=== PATIENT | female | born 1995 | race Caucasian/White ===

== ENCOUNTER 2022-10-08 19:22 | Inpatient (IN) ==
[2022-10-08] MEDS ORDERED: OXYTOCIN 30 UNITS/500 ML BAG IV PRN ×2 (19:34→20:07)
[2022-10-08] MEDS ORDERED: LIDOCAINE 1% LOCAL 20 ML VIAL INFIL PRN (19:34)
[2022-10-08 20:11] LABS: Hematocrit (blood only) 35.6 % (37.0-47.0); Hemoglobin 12.4 g/dl (12.0-16.0); Mean Corpuscular Hemoglobin 31.3 pg (25.0-34.0); Mean Corpuscular Hgb Conc 34.8 g/dL (32.0-36.0); Mean Corpuscular Volume 89.9 fL (80.0-100.0); Mean Platelet Volume 10.9 fL (9.4-12.4); Platelet Count 159 K/uL (130-400); RDW Coefficient of Variation 13.1 % (11.5-14.5); RDW Standard Deviation 42.9 fL (36.4-46.3); Red Blood Count 3.96 M/uL (4.20-5.40); White Blood Count 11.67 K/ul (4.8-10.8)
--- NOTE | 2022-10-08 20:13 | History & Physical Report ---
Date of Service October 08, 2022 Assessment & Plan (1) Tobacco smoking affecting : (2) Term , repeat: Admission and Anticipated Discharge Date Admission Date: October 08, 2022 History of Present Illness Chief Complaint: SROM Primary Care Provider: RADHA PCP 27 F P1001 at 39.4 weeks presents to L&D at [facility] with SROM clear fluid at 1800. Allergies Allergy/AdvReac Type Severity Reaction Status Date / Time No Known Allergies Allergy Verified 08/08/22 18:58 Home Medications Medication Instructions Recorded Confirmed Type buprenorphine HCl 8 mg sublingual 20 mg sublingual DAILY 08/08/22 10/08/22 History tablet ubhynvpz-jha-Oh-FA 1 mg 1 tab PO DAILY 10/08/22 10/08/22 History tablet Patient History Social History Smoking Status: Current every day smoker Second Hand Exposure: No; Do You Dip or Chew Tobacco: No; Tobacco Cessation Education Requested by Patient: No Hx Alcohol Use: Yes Hx Substance Use: Yes (fentyal clean since 10/2021) Substance Use Type Other:: Subutex 24mg daily Preferred Language: Belgian Communication Ability: Effective 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 Beliefs That Will Affect Care: None marital status: Single Current Living Situation: Family and Significant Other Current Living Situation Comment: fob and son Other Information That Helps Us Care for You: No Feels Safe at Home: Yes Safety Concerns: Feels Safe At This Time Assistive Devices: None 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 Review of Systems All systems reviewed & are unremarkable except as noted in HPI & below Physical Exam Constitutional: WD/WN, vitals as above Eyes: PERRL, conjunctivae normal, anicteric sclerae Respiratory: normal respiratory effort, lungs clear to auscultation Gastrointestinal (Abdomen): Inspection/Auscultation: abdomen normal to inspection Musculoskeletal: Extremities: extremities normal to inspection Skin: no rashes, warm and dry Neurologic: patellar DTR's 2+ bilat, sensation intact Psychiatric: A+Ox3, euthymic affect Genitourinary: Manual OB Exam: + cervical dilation 2 cm, + cervical effacement 50%, + station -2 and + amniotic fluid clear OB Exam Monitor Tracing: + exte rnal FHT monitor used, + external uterine monitor used, + category I and + normal FHT variability GBS is negative EFW 7 lbs Results & Data Vital Signs (Past 12 Hours) Vital Signs Pulse Resp BP 10/08/22 19:32 89 115/68 10/08/22 19:33 18 Laboratory Results Laboratory Results - last 72 hr 10/08/22 19:53 WBC 11.67 H RBC 3.96 L Hgb 12.4 Hct 35.6 L MCV 89.9 MCH 31.3 MCHC 34.8 RDW Std Deviation 42.9 RDW Coeff of Yanira 13.1 Plt Count 159 MPV 10.9 Code Status & VTE Plan VTE Prophylaxis Plan VTE Prophylaxis will be ordered: No Monitoring External Monitor Cat 1
[2022-10-08] MEDS: LACTATED RINGER'S 1,000 ML IV PRN (20:50)
[2022-10-08] MEDS: NICOTINE 21 MG/24 HR TDSY TD SCH (20:54)
[2022-10-08] MEDS ORDERED: NICOTINE 7 MG/24 HR TDSY TD SCH (21:00)
[2022-10-08] MEDS: buprenorphine HCL 2 MG SUBL SL SCH (21:01)
[2022-10-08 21:50] LABS: Amphetamines+Metham, Urine Neg (Neg); Barbiturates, Urine Neg (Neg); Benzodiazepine, Urine Neg (Neg); Cocaine, Urine Neg (Neg); MDMA (Ecstacy), Urine Neg (Neg); Methadone, Urine Neg (Neg); Opiate, Urine Neg (Neg); Phencyclidine, Urine Neg (Neg)
[2022-10-09] MEDS: LACTATED RINGER'S 1,000 ML IV PRN ×2 (04:42→09:22)
[2022-10-09] MEDS: buprenorphine HCL 8 MG SUBL SL SCH ×2 (07:03→12:55)
[2022-10-09] MEDS ORDERED: fentaNYL citrate PF 100 MCG/2 ML VIAL ONE (08:56)
[2022-10-09] MEDS ORDERED: SODIUM CHLORIDE 0.9% PF INJ 10 ML VIAL ONE (08:56)
[2022-10-09] MEDS ORDERED: BUPIVACAINE 0.25% PF 30 ML VIAL ONE (08:56)
[2022-10-09] MEDS ORDERED: fentaNYL 2MCG/ML ROPIVACAINE 1.25MG/ML 100 ML BAG EPI ONE (08:57)
[2022-10-09] MEDS ORDERED: LIDOCAINE 2%/EPINEPHRINE 1:200,000 20 ML PF ONE ×2 (08:57→14:12)
[2022-10-09] MEDS ORDERED: ePHEDrine sulfate 50 MG/ML AMP IV PRN (09:10)
[2022-10-09] MEDS ORDERED: diphenhydrAMINE 50 MG/ML VIAL IV PRN (09:10)
[2022-10-09] MEDS ORDERED: fentaNYL 2MCG/ML ROPIVACAINE 1.25MG/ML 100 ML BAG EPI PRN (09:10)
[2022-10-09] MEDS ORDERED: NALOXONE HCL 1 MG in SODIUM CHLORIDE 0.9% 1000ML 1,000 ML IV PRN (09:10)
[2022-10-09] MEDS ORDERED: NALBUPHINE HCL INJ 10 MG/ML AMP IV PRN (09:10)
[2022-10-09] MEDS ORDERED: NALOXONE HCL 0.4 MG/1 ML VIAL/CARP IV PRN (09:10)
[2022-10-09] MEDS ORDERED: ONDANSETRON INJ 2 MG/ML 2 ML VIAL IV PRN (09:10)
[2022-10-09] MEDS ORDERED: ePHEDrine sulfate 50 MG/ML AMP ONE (09:13)
--- NOTE | 2022-10-09 09:14 | Anesthesiology Consultation ---
Date of Service October 09, 2022 Assessment & Plan (1) Encounter for pre-operative examination: Chart Review Chart Review: Patient NOT seen in Pre Admission Testing and Acceptable Risk for Labor Epidural Consults Requested none History Height/Weight Height: 5 ft 6 in Weight: 78.018 kg Allergies Allergy/AdvReac Type Severity Reaction Status Date / Time No Known Allergies Allergy Verified 08/08/22 18:58 Medications Home Medications Medication Instructions Recorded Confirmed Last Taken buprenorphine HCl 8 mg sublingual 20 mg sublingual DAILY 08/08/22 10/08/22 10/08/22 tablet 1300 otdhxtof-hnr-At-FA 1 mg 1 tab PO DAILY 10/08/22 10/08/22 10/08/22 08:00 tablet Active Medications Generic Name Dose Route Start Last Admin Trade Name Freq PRN Reason Stop Dose Admin Buprenorphine HCl 8 mg 10/09/22 06:30 10/09/22 07:03 Buprenorphine Hcl 8 Mg Subl SL 11/08/22 06:29 8 mg DAILYBB KORINA Administration Buprenorphine HCl 4 mg 10/08/22 20:50 10/08/22 21:01 Buprenorphine Hcl 2 Mg Subl SL 11/07/22 20:49 4 mg HS KORINA Administration Lactated Ringer's 1,000 mls @ 125 mls/hr 10/08/22 19:34 10/09/22 09:23 Lr IV 10/10/22 19:33 125 mls/hr .Q8H PRN Infusion L&D Protocol Protocol Oxytocin 30 units in 500 mls @ 9 mls/hr 10/08/22 20:07 10/09/22 08:30 Pitocin IV 10/10/22 20:06 0.54 units/hr .Q24H PRN 9 mls/hr Labor Induction/Augmentation Titration Protocol 0.54 UNITS/HR Nicotine 21 mg 10/08/22 21:00 10/08/22 20:54 Nicotine 21 Mg/24 Hr Tdsy TD 11/07/22 20:59 21 mg HS KORINA Administration Past Medical History Medical History (Updated 10/09/22 @ 09:13 by Sekou Connor MD) Encounter for pre-operative examination Tobacco smoking affecting Exercise / Class Metabolic Activity II 4-5 Yardwork/Stairs/Walk up hill Social History Smoking Status: Current every day smoker tobacco type: cigarettes Do You Dip or Chew Tobacco: No Hx Alcohol Use: Yes 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
[2022-10-09] MEDS ORDERED: buprenorphine HCL 8 MG SUBL SL SCH (10:30)
[2022-10-09] MEDS ORDERED: TERBUTALINE SULFATE 1 MG/ML VIAL ONE (10:33)
[2022-10-09] MEDS ORDERED: TERBUTALINE SULFATE 1 MG/ML VIAL SQ ONE (11:46)
--- NOTE | 2022-10-09 13:14 | Obstetrical Progress Note ---
Date of Service October 09, 2022 Assessment & Plan (1) Term , repeat: Plan: Called to evaluate pt with variable and late decel On arrival pit. was off oxygen mask was on an IVF VE ; 5cm/-1 scalp electrode placed Position change improved FHR Pitocin was restarted and cervix is now 8-9/0 station Anticipate VD Admission and Anticipated Discharge Date Admission Date: October 08, 2022 Results & Data Vital Signs (Past 12 Hours) Vital Signs Temp Pulse Resp BP Pulse Ox 10/09/22 13:05 97 H 96 10/09/22 13:04 108 H 152/79 H 10/09/22 13:00 85 99 10/09/22 12:55 106 H 96 10/09/22 12:50 89 98 10/09/22 12:49 90 116/55 L 10/09/22 12:45 82 98 10/09/22 12:40 77 97 10/09/22 12:35 77 97 10/09/22 12:33 111 H 92 10/09/22 12:32 101 H 120/71 10/09/22 12:30 88 97 10/09/22 12:25 91 H 96 10/09/22 12:20 87 96 10/09/22 12:17 80 119/63 10/09/22 12:15 88 95 10/09/22 12:10 93 H 96 10/09/22 12:05 80 96 10/09/22 12:03 18 10/09/22 12:03 36.7 C 18 10/09/22 12:02 103 H 122/77 10/09/22 12:00 97 10/09/22 12:00 89 10/09/22 12:00 95 H 92 10/09/22 11:55 98 H 96 10/09/22 11:50 97 H 97 10/09/22 11:47 96 H 116/76 10/09/22 11:45 104 H 100 10/09/22 11:40 90 99 10/09/22 11:35 83 100 10/09/22 11:32 88 106/56 L 10/09/22 11:30 74 100 10/09/22 11:25 78 99 10/09/22 11:20 106 H 100 10/09/22 11:17 75 106/51 L 10/09/22 11:15 78 100 10/09/22 11:10 84 100 10/09/22 11:05 81 100 10/09/22 11:02 88 106/53 L 10/09/22 11:00 76 100 10/09/22 10:55 88 100 10/09/22 10:50 84 100 10/09/22 10:48 98 H 100/53 L 10/09/22 10:45 90 100 10/09/22 10:40 85 100 10/09/22 10:35 84 100 10/09/22 10:32 74 105/57 L 10/09/22 10:30 83 100 10/09/22 10:25 68 98 10/09/22 10:20 69 99 10/09/22 10:19 74 105/56 L 10/09/22 10:15 88 97 10/09/22 10:13 74 94 10/09/22 10:10 18 10/09/22 10:10 36.6 C 77 18 95 10/09/22 10:08 70 94 10/09/22 10:05 76 94 10/09/22 10:02 85 106/72 10/09/22 10:00 82 96 10/09/22 09:59 77 118/74 10/09/22 09:57 74 120/75 10/09/22 09:55 71 96 10/09/22 09:56 72 126/71 10/09/22 09:54 70 129/66 10/09/22 09:52 76 124/73 10/09/22 09:50 84 96 10/09/22 09:49 75 117/65 10/09/22 09:47 73 116/66 10/09/22 09:45 76 112/64 97 10/09/22 09:44 70 105/56 L 10/09/22 09:42 71 109/56 L 10/09/22 09:40 96 10/09/22 09:40 93 H 10/09/22 09:40 77 105/62 10/09/22 09:37 78 108/55 L 10/09/22 09:35 73 110/56 L 96 10/09/22 09:33 90 117/65 10/09/22 09:30 98 H 98 10/09/22 09:28 73 119/64 10/09/22 09:25 79 96 10/09/22 09:20 75 97 10/09/22 09:17 90 94 10/09/22 09:15 80 97 10/09/22 09:02 71 114/73 10/09/22 08:02 36.6 C 71 18 115/62 10/09/22 07:06 16 10/09/22 07:06 36.7 C 16 10/09/22 07:07 78 101/57 L 10/09/22 05:53 65 104/57 L 10/09/22 04:54 18 10/09/22 04:54 36.5 C 18 10/09/22 04:48 70 109/67 10/09/22 03:40 18 10/09/22 03:40 36.6 C 18 10/09/22 03:49 75 103/67 10/09/22 03:00 18 10/09/22 03:00 18 10/09/22 02:48 68 92/50 L 10/09/22 01:56 18 10/09/22 01:56 36.5 C 18 10/09/22 01:49 64 104/59 L
[2022-10-09] MEDS ORDERED: NURSING L&D Epidural Breakthrough Pain Update ONE (13:59)
--- NOTE | 2022-10-09 14:07 | Obstetrical Progress Note ---
Date of Service October 09, 2022 Assessment & Plan (1) Term , repeat: Plan: Pt fully dilated/0 station Pitocin 3mu tried pushing with cts because she had so much vaginal pressure FHr showed dep variable and sometimes late decel Pitocin is stopped with pushing and oxygen given. Pt is placed on her left side- FHR is improved FH now shows early decel plan' anesthesia pain control Anticipate passive decent Admission and Anticipated Discharge Date Admission Date: October 08, 2022 Results & Data Vital Signs (Past 12 Hours) Vital Signs Temp Pulse Resp BP Pulse Ox 10/09/22 14:00 92 H 100 10/09/22 13:55 78 100 10/09/22 13:50 112 H 100 10/09/22 13:48 81 121/71 10/09/22 13:45 77 100 10/09/22 13:40 110 H 100 10/09/22 13:38 86 94 10/09/22 13:35 91 H 96 10/09/22 13:32 82 126/73 10/09/22 13:30 118 H 100 10/09/22 13:25 86 98 10/09/22 13:20 110 H 95 10/09/22 13:15 86 97 10/09/22 13:10 90 98 10/09/22 13:05 97 H 96 10/09/22 13:04 108 H 152/79 H 10/09/22 13:00 85 99 10/09/22 12:55 106 H 96 10/09/22 12:50 89 98 10/09/22 12:49 90 116/55 L 10/09/22 12:45 82 98 10/09/22 12:40 77 97 10/09/22 12:35 77 97 10/09/22 12:33 111 H 92 10/09/22 12:32 101 H 120/71 10/09/22 12:30 88 97 10/09/22 12:25 91 H 96 10/09/22 12:20 87 96 10/09/22 12:17 80 119/63 10/09/22 12:15 88 95 10/09/22 12:10 93 H 96 10/09/22 12:05 80 96 10/09/22 12:03 18 10/09/22 12:03 36.7 C 18 10/09/22 12:02 103 H 122/77 10/09/22 12:00 97 10/09/22 12:00 89 10/09/22 12:00 95 H 92 10/09/22 11:55 98 H 96 10/09/22 11:50 97 H 97 10/09/22 11:47 96 H 116/76 10/09/22 11:45 104 H 100 10/09/22 11:40 90 99 10/09/22 11:35 83 100 10/09/22 11:32 88 106/56 L 10/09/22 11:30 74 100 10/09/22 11:25 78 99 10/09/22 11:20 106 H 100 10/09/22 11:17 75 106/51 L 10/09/22 11:15 78 100 10/09/22 11:10 84 100 10/09/22 11:05 81 100 10/09/22 11:02 88 106/53 L 10/09/22 11:00 76 100 10/09/22 10:55 88 100 10/09/22 10:50 84 100 10/09/22 10:48 98 H 100/53 L 10/09/22 10:45 90 100 10/09/22 10:40 85 100 10/09/22 10:35 84 100 10/09/22 10:32 74 105/57 L 10/09/22 10:30 83 100 10/09/22 10:25 68 98 10/09/22 10:20 69 99 10/09/22 10:19 74 105/56 L 10/09/22 10:15 88 97 10/09/22 10:13 74 94 10/09/22 10:10 18 10/09/22 10:10 36.6 C 77 18 95 10/09/22 10:08 70 94 10/09/22 10:05 76 94 10/09/22 10:02 85 106/72 10/09/22 10:00 82 96 10/09/22 09:59 77 118/74 10/09/22 09:57 74 120/75 10/09/22 09:55 71 96 10/09/22 09:56 72 126/71 10/09/22 09:54 70 129/66 10/09/22 09:52 76 124/73 10/09/22 09:50 84 96 10/09/22 09:49 75 117/65 0523 09:47 73 116/66 10/09/22 09:45 76 112/64 97 10/09/22 09:44 70 105/56 L 10/09/22 09:42 71 109/56 L 10/09/22 09:40 96 10/09/22 09:40 93 H 10/09/22 09:40 77 105/62 10/09/22 09:37 78 108/55 L 10/09/22 09:35 73 110/56 L 96 10/09/22 09:33 90 117/65 10/09/22 09:30 98 H 98 10/09/22 09:28 73 119/64 10/09/22 09:25 79 96 10/09/22 09:20 75 97 10/09/22 09:17 90 94 10/09/22 09:15 80 97 10/09/22 09:02 71 114/73 10/09/22 08:02 36.6 C 71 18 115/62 10/09/22 07:06 16 10/09/22 07:06 36.7 C 16 10/09/22 07:07 78 101/57 L 10/09/22 05:53 65 104/57 L 10/09/22 04:54 18 10/09/22 04:54 36.5 C 18 10/09/22 04:48 70 109/67 10/09/22 03:40 18 10/09/22 03:40 36.6 C 18 10/09/22 03:49 75 103/67 10/09/22 03:00 18 10/09/22 03:00 18 10/09/22 02:48 68 92/50 L
[2022-10-09] MEDS ORDERED: buprenorphine HCL 2 MG SUBL SL SCH (15:30)
[2022-10-09] MEDS ORDERED: miSOPROStoL 200 MCG TAB PR ONE (16:21)
[2022-10-09] MEDS ORDERED: HYDROCORTISONE ACETATE 25 MG SUPP PR PRN (16:21)
[2022-10-09] MEDS ORDERED: BENZOCAINE 20% AER SPR 82.5 GM CAN EXT PRN (16:21)
[2022-10-09] MEDS ORDERED: OXYTOCIN 30 UNITS/500 ML BAG IV PRN (16:21)
[2022-10-09] MEDS ORDERED: bisacodyL 10 MG SUPP PR PRN (16:21)
[2022-10-09] MEDS ORDERED: METHYLERGONOVINE MALEATE 0.2 MG/ML AMP IM ONE (16:21)
[2022-10-09] MEDS ORDERED: DIPHTHERIA/TETANUS/PERTUSSIS 0.5mL SYR/VIAL (Age 7+yrs) IM ONE (16:21)
[2022-10-09] MEDS ORDERED: ACETAMINOPHEN 325 MG TAB PO PRN (16:21)
[2022-10-09 16:37] LABS: Base Excess Cord Venous Blood -4.3 mEq/L (-7.7-1.9); Cord Venous Blood HCO3 22 mmol/L (18.4-26.8); Cord Venous Blood PCO2 42 mmHg (30.4-57.2); Cord Venous Blood PO2 26 mmHg (14.1-43.3); Cord Venous Blood pH 7.32 (7.20-7.44); O2 Saturation Cord Venous Bld 60.6 % (<68)
[2022-10-09] MEDS: IBUPROFEN 600 MG TAB PO PRN ×2 (17:08→21:29)
--- NOTE | 2022-10-09 17:33 | Anesthesia Procedure Note ---
Date of Service October 09, 2022 Anesthesia Post Epidural Note Vital Signs Vital Signs: Temp Pulse Resp BP Pulse Ox 36.7 C 118 H 16 127/72 97 10/09/22 14:45 10/09/22 17:30 10/09/22 14:45 10/09/22 17:30 10/09/22 16:10 Pain Intensity Lower Abdomen: Pain Intensity: 8 Notes Mental Status: alert / awake / arousable and participated in evaluation Nausea / Vomiting: adequately controlled Pain: adequately controlled Airway Patency, RR, SpO2: stable & adequate BP & HR: stable & adequate Hydration State: stable & adequate Neuraxial Anesthesia: was administered and sensory block is resolving Anesthetic Complications: no major complications apparent and Pt Satisfied with anesthetic care Epidural: Removed without complications and With tip intact
[2022-10-09 19:14] LABS: Base Excess Cord Arterial Bld -4.9 mEq/L (-9-1.8); CO2 Cord Arterial Blood 62 mmHg (39.1-73.5); HCO3 Cord Arterial Blood 24 mmol/L (19.7-28.5); Oxygen Sat Cord Arterial Blood < 60.0 % (<60); PO2 Cord Arterial Blood 21 mmHg (4.1-31.7)
[2022-10-09] MEDS: DOCUSATE SODIUM 100 MG CAP PO SCH (21:29)
[2022-10-09] MEDS: buprenorphine HCL 2 MG SUBL SL SCH (21:29)
[2022-10-09] MEDS: NICOTINE 21 MG/24 HR TDSY TD SCH (22:28)
--- NOTE | 2022-10-10 01:57 | Delivery Summary ---
DELIVERY NOTE The patient delivered a live infant in left occiput anterior presentation with loose nuchal cord. Nuchal cord was easily reduced. Infant was placed on mother's abdomen. Delayed cord clamp was performed after 1 minute. Cord blood and cord gases were obtained. Infant's weight and Apgars were in the pediatric record. Placenta was spontaneously delivered. Inspection of the placenta showed normal-looking placenta with terminal meconium. Inspection of the perineum showed a third-degree right labial laceration. There were no other tears. Rectal exam post-delivery showed good sphincter tone. Estimated blood loss was 450 mL. There was good hemostasis. Baby and mother were doing well in recovery. All instruments were removed from the vagina and accounted for x2 including sponges, needles, and retractors. Job ID: [id number] [facility]
[2022-10-10] MEDS: IBUPROFEN 600 MG TAB PO PRN (04:24)
[2022-10-10 06:56] LABS: Hematocrit (blood only) 32.7 % (37.0-47.0); Hemoglobin 11.1 g/dl (12.0-16.0); Mean Corpuscular Hemoglobin 31.2 pg (25.0-34.0); Mean Corpuscular Hgb Conc 33.9 g/dL (32.0-36.0); Mean Corpuscular Volume 91.9 fL (80.0-100.0); Mean Platelet Volume 11.4 fL (9.4-12.4); Platelet Count 117 K/uL (130-400); RDW Coefficient of Variation 13.1 % (11.5-14.5); RDW Standard Deviation 44.3 fL (36.4-46.3); Red Blood Count 3.56 M/uL (4.20-5.40); White Blood Count 19.02 K/ul (4.8-10.8)
[2022-10-10] MEDS ORDERED: PRENATAL VITAMIN 1 TAB PO SCH (08:00)
[2022-10-10] MEDS: buprenorphine HCL 8 MG SUBL SL SCH ×2 (08:07→12:08)
[2022-10-10] MEDS: DOCUSATE SODIUM 100 MG CAP PO SCH (08:07)
--- NOTE | 2022-10-10 08:57 | Obstetrical Progress Note ---
Date of Service October 10, 2022 Assessment & Plan Admission and Anticipated Discharge Date Admission Date: October 08, 2022 Subjective Patient is seen and examined. She feels well, no complaints. Desires to go out and d/c nesting this afternoon Ambulating without dizziness Voiding without difficulty Tolerating regular diet with out N&V Bleeding is minimal No fever/ chills/ CP/ SOB/ N&V/ Leg pain Breast feeding without problems Vital Signs Temp Pulse Resp BP Pulse Ox O2 Del Method 10/10/22 07:35 36.7 C 85 18 110/67 96 Room Air 10/10/22 04:30 36.5 C 80 18 112/68 96 Room Air 10/10/22 00:40 36.5 C 73 18 115/69 96 Room Air Lab Results 10/08/22 10/08/22 10/08/22 Range/Units 19:53 Unknown Unknown WBC 11.67 H (4.8-10.8) K/ul RBC 3.96 L (4.20-5.40) M/uL Hgb 12.4 (12.0-16.0) g/dl Hct 35.6 L (37.0-47.0) % MCV 89.9 (80.0-100.0) fL MCH 31.3 (25.0-34.0) pg MCHC 34.8 (32.0-36.0) g/dL RDW Std Deviation 42.9 (36.4-46.3) fL RDW Coeff of Yanira 13.1 (11.5-14.5) % Plt Count 159 (130-400) K/uL MPV 10.9 (9.4-12.4) fL Cord ABG pH (7.1-7.38) Cord ABG pCO2 (39.1-73.5) mmHg Cord ABG pO2 (4.1-31.7) mmHg Cord ABG HCO3 (19.7-28.5) mmol/L Cord ABG Base Excess (-9-1.8) mEq/L Cord ABG O2 Sat (<60) % Cord VBG pH (7.20-7.44) Cord VBG pCO2 (30.4-57.2) mmHg Cord VBG pO2 (14.1-43.3) mmHg Cord VBG HCO3 (18.4-26.8) mmol/L Cord VBG Base Excess (-7.7-1.9) mEq/L Cord VBG O2 Sat (<68) % Blood Gas Comments Urine Opiates Screen Neg (Neg) Ur Methadone, Qual Neg (Neg) Urine Barbiturates Neg (Neg) Ur Phencyclidine (PCP) Neg (Neg) U Amphetamin/Meth Scrn Neg (Neg) MDMA (Ecstasy) Screen Neg (Neg) U Benzodiazepines Scrn Neg (Neg) Ur Cocaine Metabolite Neg (Neg) U Marijuana (THC) Screen Neg (Neg) SARS-CoV-2, RNA, NAAT NEGATIVE (NEGATIVE) 10/09/22 10/09/22 10/10/22 Range/Units 15:59 16:21 06:25 WBC 19.02 H (4.8-10.8) K/ul RBC 3.56 L (4.20-5.40) M/uL Hgb 11.1 L (12.0-16.0) g/dl Hct 32.7 L (37.0-47.0) % MCV 91.9 (80.0-100.0) fL MCH 31.2 (25.0-34.0) pg MCHC 33.9 (32.0-36.0) g/dL RDW Std Deviation 44.3 (36.4-46.3) fL RDW Coeff of Yanira 13.1 (11.5-14.5) % Plt Count 117 L (130-400) K/uL MPV 11.4 (9.4-12.4) fL Cord ABG pH 7.20 (7.1-7.38) Cord ABG pCO2 62 (39.1-73.5) mmHg Cord ABG pO2 21 (4.1-31.7) mmHg Cord ABG HCO3 24 (19.7-28.5) mmol/L Cord ABG Base Excess -4.9 (-9-1.8) mEq/L Cord ABG O2 Sat < 60.0 (<60) % Cord VBG pH 7.32 (7.20-7.44) Cord VBG pCO2 42 (30.4-57.2) mmHg Cord VBG pO2 26 (14.1-43.3) mmHg Cord VBG HCO3 22 (18.4-26.8) mmol/L Cord VBG Base Excess -4.3 (-7.7-1.9) mEq/L Cord VBG O2 Sat 60.6 (<68) % Blood Gas Comments DAVIS DAVIS Urine Opiates Screen (Neg) Ur Methadone, Qual (Neg) Urine Barbiturates (Neg) Ur Phencyclidine (PCP) (Neg) U Amphetamin/Meth Scrn (Neg) MDMA (Ecstasy) Screen (Neg) U Benzodiazepines Scrn (Neg) Ur Cocaine Metabolite (Neg) U Marijuana (THC) Screen (Neg) SARS-CoV-2, RNA, NAAT (NEGATIVE) PE: General: Alert, orientedx3, NAD Abd: soft, NT, fundus firm, below Umbilicus Perineum intact, Lochia rubra minimal Ext; NT, no edema AP: 27 yo s/p , ppd# 1 VSS Afebrile doing well WBCC elevated, prolonded ROM, no s/s of endometritis except elevated WBCC Desires d/c this afternoon Plan to repeat CBC before d/c Continue routine care All questions were answered Results & Data Vital Signs (Past 12 Hours) Vital Signs Temp Pulse Resp BP Pulse Ox O2 Del Method 10/10/22 07:35 36.7 C 85 18 110/67 96 Room Air 10/10/22 04:30 36.5 C 80 18 112/68 96 Room Air 10/10/22 00:40 36.5 C 73 18 115/69 96 Room Air
--- NOTE | 2022-10-10 10:54 | Obstetrical Progress Note ---
Date of Service October 10, 2022 Assessment & Plan Admission and Anticipated Discharge Date Admission Date: October 08, 2022 Subjective Her baby is being transferred to [facility] [place] NICU Patient desires to go with baby Will f/u with OB there Results & Data Vital Signs (Past 12 Hours) Vital Signs Temp Pulse Resp BP Pulse Ox O2 Del Method 10/10/22 10:19 36.7 C 85 18 110/67 96 10/10/22 07:35 36.7 C 85 18 110/67 96 Room Air 10/10/22 04:30 36.5 C 80 18 112/68 96 Room Air 10/10/22 00:40 36.5 C 73 18 115/69 96 Room Air
[2022-10-10] MEDS ORDERED: bisacodyL 5 MG TABEC PO SCH (20:00)
== END 2022-10-10 13:45 | disposition home or self-care (01) | DRG 768 ==
LOC: OPB 19:22 → 4S1 19:23 → 4E2 10-09 18:45